=== PATIENT | male | born 1985 | race Caucasian/White ===

== ENCOUNTER 2016-10-20 18:04 | Emergency (ER) | payer OTHER ==
[~2016-10-20] VITALS: Wt 64.0 kg
[2016-10-20] MEDS ORDERED: IBUPROFEN 600 MG TAB PO ONE (20:00)
[2016-10-20] MEDS ORDERED: CYCLOBENZAPRINE 10 MG TAB PO ONE (20:00)
--- NOTE | 2016-10-20 21:45 | RADRPT ---
PROCEDURE: US Abdomen CLINICAL INDICATION: Abdominal pain. Evaluate for free fluid. TECHNIQUE: Multiple real-time longitudinal and transverse images were acquired of the patient's abdo men utilizing a curved array transducer. COMPARISON: None FINDINGS: There is no free fluid in the all 4 quadrants of the abdomen. IMPRESSION: No free fluid in the abdomen. RPTAT: HHO .Sarbjit Altamirano MD, MD Date Time Electronically viewed and signed by .Sarbjit Altamirano MD, on 10/20/2016 21:45 .O/
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
--- NOTE | 2016-10-20 21:49 | RADRPT ---
PROCEDURE: XR Hip. CLINICAL INDICATION: Right hip pain. TECHNIQUE: AP and frog lateral views of the right hip were performed. COMPARISON: None. FINDINGS: There is normal mineralization and alignment. No fracture or osseous lesion is identified. There are normal joints without evidence of arthritis or effusion. The soft tissues are unremarkable. IMPRESSION: 1. Unremarkable right hip x-rays series. RPTAT: HHO .Sarbjit Altamirano MD, MD Date Time Electronically viewed and signed by .Sarbjit Altamirano MD, on 10/20/2016 21:49 .O/
--- NOTE | 2016-10-20 21:49 | RADRPT ---
PROCEDURE: XR Wrist. CLINICAL INDICATION: Pain status post fall. TECHNIQUE: AP, lateral and oblique views of the left wrist were performed. COMPARISON: No prior studies are available for comparison. FINDINGS: No evidence of fracture, dislocation, or subluxation is seen. The bones appear well mineralized. The joint spaces are well preserved. The soft tissues appear intact. IMPRESSION: No acute fracture or dislocation. RPTAT: HHO .Sarbjit Altamirano MD, MD Date Time Electronically viewed and signed by .Sarbjit Altamirano MD, on 10/20/2016 21:48 .O/
[2016-10-20] MEDS ORDERED: IBUP-1542 PO (22:02)
[2016-10-20] MEDS ORDERED: CYCL-319 PO (22:02)
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
== END 2016-10-20 22:08 | disposition home or self-care (01) ==
LOC: FTE 18:04
DX: S20.211A Contusion of right front wall of thorax, initial encounter (principal); S79.911A Unspecified injury of right hip, initial encounter; V49.49XA Driver injured in collision with other motor vehicles in traffic accident, initial encounter
CPT/HCPCS: 29125; 71100; 73110; 73510; 76705; Z7502; Z7610